=== PATIENT | female | born 1990 | race African-American/Black ===

== ENCOUNTER 2016-07-30 08:27 | Emergency (ER) | payer MEDICAID ==
[~2016-07-30] VITALS: Ht 175.3 cm; Wt 113.9 kg
[2016-07-30] MEDS ORDERED: ALBUTEROL SULF 2.5 MG/0.5ML(0.5%) NEB SOLN HHN STA (08:43)
[2016-07-30] MEDS ORDERED: methylPREDNISolone SOD SUCC 125 MG/2 ML VL IV ONE (08:45)
[2016-07-30] MEDS ORDERED: IPRATROPIUM BROM 0.5 MG/2.5ML INH SOL NEB ONE (08:45)
[2016-07-30 09:32] LABS: Basophils # (auto) 0 uL; Basophils % (auto) 0.1 % (0.0-2.0); Eosinophils # (auto) 0.2 uL; Hematocrit 33.3 % (36.0-46.0); Lymphocytes # (auto) 0.7 uL; Lymphocytes % (auto) 8.8 % (10.0-50.0); Mean Corpuscular Hemoglobin 31.9 pg (28.0-32.0); Mean Corpuscular Hgb Conc. 33.1 g/dL (32.0-36.0); Mean Corpuscular Volume 96.5 fL (80.0-100.0); Mean Platelet Volume 8.3 fL (7.4-10.4); Monocytes # (auto) 0.6 uL; Monocytes % (auto) 7.7 % (0.0-12.0); Neutrophils # (auto) 6.5 uL; Neutrophils % (auto) 80.4 % (37.0-80.0); Platelet Count (auto) 271 10^3/uL (140-450); Red Cell Distribution Width 13.8 % (11.6-16.0); White Blood Cell 8.1 10^3/uL (4.4-10.8)
[2016-07-30] MEDS ORDERED: TERBUTALINE SULFATE 1 MG/ML 1ML VIAL SC ONE ×2 (09:37→09:45)
[2016-07-30 09:55] LABS: Albumin 2.6 g/dL (3.4-5.0); Anion Gap 9 (5-15); Aspartate Aminotransferase 15 U/L (15-37); BUN/Creatinine Ratio 13.2; Blood Urea Nitrogen 7 mg/dL (7-18); Calcium 8.5 mg/dL (8.5-10.1); Carbon Dioxide 23 mmol/L (21-32); Chloride 106 mmol/L (98-107); GFR African American 181 mL/min; GFR Non-African American 149 mL/min; Glucose 94 mg/dL (74-106); Potassium 3.7 mmol/L (3.5-5.1); Sodium 138 mmol/L (136-145)
[2016-07-30 09:58] LABS: Alkaline Phosphatase 73 U/L (45-117); Bilirubin, Total < 0.1 mg/dL (0.2-1.0); Total Protein 6.9 g/dL (6.4-8.2)
[2016-07-30 10:02] LABS: Urine Bilirubin Negative (Negative); Urine Blood Negative /uL (Negative); Urine Color Yellow (Yellow); Urine Ketone TRACE (Negative); Urine Nitrite Negative (Negative); Urine RBC <1 /hpf (0 - 4); Urine Squamous Epithelial Cell FEW /hpf (<5); Urine Urobilinogen Normal (Negative); Urine pH 6.5 (5.0-8.0)
[2016-07-30 10:10] LABS: Urine Glucose 3+ mg/dL (Normal)
[2016-07-30 11:03] VITALS: BP 115/56
== END 2016-07-30 11:17 | disposition home or self-care (01) ==
LOC: ER 08:27
DX: J45.909 Unspecified asthma, uncomplicated (principal)
CPT/HCPCS: 36415; 80053; 81001; 85025; 94644; 94761; 96372; 96374; 99285; J2930; J3105; J7030

== ENCOUNTER 2016-08-01 15:05 | Observation (INO) | payer MEDICAID ==
[2016-08-01] MEDS ORDERED: PREN-153 OR (15:34)
[2016-08-01] MEDS ORDERED: FERR18TA2 PO (15:34)
== END 2016-08-01 16:00 | disposition home or self-care (01) | DRG 566 ==
LOC: LDRP 15:05
PROVIDERS: ADMIT Specialist; ATTEND Specialist
DX: O26.893 Other specified pregnancy related conditions, third trimester (principal); Z3A.31 31 weeks gestation of pregnancy
CPT/HCPCS: 59025; 81002; G0378

== ENCOUNTER 2016-09-29 23:45 | Observation (INO) | payer MEDICAID ==
[~2016-09-29 23:45] MED LIST: FERR18TA2 PO; PREN-153 OR
== END 2016-09-30 01:51 | disposition home or self-care (01) | DRG 566 ==
LOC: LDRP 23:45
PROVIDERS: ADMIT Specialist; ATTEND Specialist
DX: O62.9 Abnormality of forces of labor, unspecified (principal); O47.9 False labor, unspecified; Z3A.39 39 weeks gestation of pregnancy
CPT/HCPCS: 59025; 81002; G0378

== ENCOUNTER 2016-09-30 08:00 | Inpatient (IN) | payer MEDICAID ==
[~2016-09-30] VITALS: Ht 175.3 cm; Wt 121.1 kg
[2016-09-30] MEDS ORDERED: LACTATED RINGER'S 1,000 ML IV SCH (08:55)
[2016-09-30] MEDS ORDERED: LACT. RINGERS/OXYTOCIN 20UNITS 1,000 ML IV SCH (08:55)
[2016-09-30] MEDS ORDERED: LIDOCAINE 1% HCL (LOCAL ANESTH.) INJ 20ML MDV IJ ONE (09:00)
[2016-09-30] MEDS ORDERED: PHISODERM TOP SOLN 240ML BTL TOP PRN (09:00)
[2016-09-30] MEDS ORDERED: NALBUPHINE HCL 10 MG/1ml INJECTION IV PRN (09:00)
[2016-09-30] MEDS ORDERED: DERMOPLAST 60ML BOTTLE TOP PRN (09:00)
[2016-09-30] MEDS ORDERED: WITCH HAZEL-GLYCERIN PAD TOP PRN (09:00)
[2016-09-30] MEDS ORDERED: PROMETHAZINE HCL 25 MG/ML 1ML IV PRN (09:00)
[2016-09-30 09:50] LABS: Basophils # (auto) 0 uL; Basophils % (auto) 0.3 % (0.0-2.0); CONDITION Y; Eosinophils # (auto) 0 uL; Eosinophils % (auto) 0.8 % (0.0-7.0); Lymphocytes # (auto) 0.6 uL; Lymphocytes % (auto) 13.2 % (10.0-50.0); Mean Corpuscular Hemoglobin 31.4 pg (28.0-32.0); Mean Corpuscular Hgb Conc. 33.2 g/dL (32.0-36.0); Mean Corpuscular Volume 94.6 fL (80.0-100.0); Mean Platelet Volume 9.2 fL (7.4-10.4); Monocytes # (auto) 0.2 uL; Monocytes % (auto) 4.5 % (0.0-12.0); Neutrophils # (auto) 3.6 uL; Neutrophils % (auto) 81.2 % (37.0-80.0); Platelet Count (auto) 272 10^3/uL (140-450); Red Cell Distribution Width 14.6 % (11.6-16.0); White Blood Cell 4.5 10^3/uL (4.4-10.8)
[2016-09-30 09:50] LABS: Urine Bilirubin Negative (Negative); Urine Blood Negative /uL (Negative); Urine Color Yellow (Yellow); Urine Glucose Normal (Normal); Urine Mucus FEW (None Seen); Urine Nitrite Negative (Negative); Urine RBC 1 /hpf (0 - 4); Urine Squamous Epithelial Cell FEW /hpf (<5)
[2016-09-30 09:51] LABS: Urine Ketone 4+ (Negative)
[2016-09-30 10:04] LABS: INR 0.87 (0.9-1.15); Partial Thromboplastin Time 28.7 sec (22.64-33.71); Prothrombin Time 9.5 sec (9.37-12.3)
[2016-09-30] MEDS ORDERED: LIDOCAINE 2%HCL (LOCAL ANESTH.) INJ 20ML MDV ONE (10:05)
[2016-09-30 10:15] LABS: Albumin 2.5 g/dL (3.4-5.0); Bilirubin, Total 0.4 mg/dL (0.2-1.0); Calcium 8.4 mg/dL (8.5-10.1); Potassium 3.5 mmol/L (3.5-5.1); Total Protein 6.6 g/dL (6.4-8.2)
[2016-09-30] MEDS ORDERED: fentaNYL W ROPIVACAINE 150 ML EPI SCH ×2 (10:15→11:00)
[2016-09-30] MEDS ORDERED: NALOXONE HCL 0.4 MG/ML VIAL IV ONE ×2 (10:15→11:00)
[2016-09-30] MEDS ORDERED: fentaNYL CITRATE 100 MCG/2 ML VL IV ONE ×2 (10:15→11:00)
[2016-09-30] MEDS ORDERED: ePHEDrine SULFATE 50 MG/ML AMP IV ONE ×2 (10:15→11:00)
[2016-09-30] MEDS ORDERED: LIDOCAINE HCL 2 %PF INJ 10ML AMP IJ ONE (10:15)
[2016-09-30] MEDS ORDERED: SODIUM CHLORIDE 0.9% 500 ML IV PRN (10:56)
[2016-09-30] MEDS: DOCUSATE CALCIUM 240 MG CAP PO SCH (13:45)
[2016-09-30] MEDS ORDERED: ACETAMINOPHEN 325 MG TAB PO PRN (13:45)
[2016-09-30] MEDS ORDERED: TETANUS-DIPTH-ACEL PERTUSSIS 0.5ML SYRG IM ONE (16:30)
[2016-09-30 18:18] VITALS: BP 109/66
[2016-09-30] MEDS: IBUPROFEN 600 MG TAB PO PRN ×2 (19:40→23:41)
[2016-09-30 23:30] VITALS: BP 104/78
[2016-10-01 03:09] VITALS: BP 119/71
[2016-10-01 08:00] VITALS: BP 106/63
[2016-10-01] MEDS: IBUPROFEN 600 MG TAB PO PRN ×2 (08:37→13:53)
[2016-10-01] MEDS: DOCUSATE CALCIUM 240 MG CAP PO SCH (10:00)
[2016-10-01] MEDS ORDERED: PNEUMOCOCCAL VACC POLYS 25 MCG/0.5 ML VIAL IM ONE (10:15)
[2016-10-01 12:00] VITALS: BP 112/63
== END 2016-10-01 15:30 | disposition home or self-care (01) | DRG 560 ==
LOC: LDRP 08:00
PROVIDERS: ADMIT Specialist; ATTEND Specialist
PROC: 10D07Z6 Extraction of Products of Conception, Vacuum, Via Natural or Artificial Opening (ICD-10-PCS; principal; 2016-09-30)
PROC: 10907ZC Drainage of Amniotic Fluid, Therapeutic from Products of Conception, Via Natural or Artificial Opening (ICD-10-PCS; 2016-09-30)
PROC: 3E0S3CZ (ICD-10-PCS; 2016-09-30)
PROC: 00HU33Z Insertion of Infusion Device into Spinal Canal, Percutaneous Approach (ICD-10-PCS; 2016-09-30)
DX: O69.81X0 Labor and delivery complicated by cord around neck, without compression, not applicable or unspecified (principal); J45.909 Unspecified asthma, uncomplicated; O99.52 Diseases of the respiratory system complicating childbirth; Z3A.39 39 weeks gestation of pregnancy; Z37.0 Single live birth; Z23 Encounter for immunization
CPT/HCPCS: 36415; 59025; 59409; 80053; 80307; 81001; 85025; 85610; 85730; 86850; 86900; 86901; 90472; 90715; 94760; 96365; 96366; 96372; 96375; J2590; J3010

== ENCOUNTER 2018-01-12 05:37 | Emergency (ER) | payer MEDICAID ==
[~2018-01-12] VITALS: Ht 175.3 cm; Wt 111.6 kg
[2018-01-12] MEDS ORDERED: LIDOCAINE VISCOUS 2% 15ML UD ONE (06:34)
[2018-01-12] MEDS ORDERED: LIDOCAINE VISCOUS 2% 15ML UD MT ONE (06:45)
[2018-01-12] MEDS ORDERED: ACETAMINOPHEN 500 MG TAB PO ONE (06:45)
[2018-01-12 07:26] VITALS: BP 99/65
== END 2018-01-12 11:51 | disposition home or self-care (01) ==
LOC: ER 05:37
DX: H72.92 Unspecified perforation of tympanic membrane, left ear (principal); J45.909 Unspecified asthma, uncomplicated

== ENCOUNTER 2018-06-08 19:58 | Inpatient (IN) | payer MEDICAID | END 2018-06-10 11:40 | disposition home or self-care (01) | LOC: LDRP 19:58 | PROC: 10E0XZZ Delivery of Products of Conception, External Approach (ICD-10-PCS; principal; ~2018-06-08) | DX: O80 Encounter for full-term uncomplicated delivery (principal); Z37.0 Single live birth; Z3A.40 40 weeks gestation of pregnancy ==

== ENCOUNTER 2018-10-05 21:06 | Emergency (ER) | payer MEDICAID ==
[~2018-10-05] VITALS: Ht 175.3 cm; Wt 112.9 kg
[~2018-10-05 21:06] MED LIST changes: +ALBUAER3 IN
[2018-10-05 21:16] VITALS: BP 124/71
[2018-10-05] MEDS ORDERED: methylPREDNISolone SOD SUCC 125 MG/2 ML VL IM ONE (21:45)
[2018-10-05] MEDS ORDERED: ACETAMINOPHEN/CODEINE#3 (300/30mg) TAB PO ONE (22:15)
[2018-10-05] MEDS ORDERED: BACLOFEN 10 MG TAB PO ONE (22:15)
== END 2018-10-05 23:00 | disposition home or self-care (01) ==
LOC: ER 21:09
DX: S16.1XXA Strain of muscle, fascia and tendon at neck level, initial encounter (principal); J45.909 Unspecified asthma, uncomplicated; Z79.899 Other long term (current) drug therapy; V29.9XXA Motorcycle rider (driver) (passenger) injured in unspecified traffic accident, initial encounter; Y93.89 Activity, other specified; Y92.89 Other specified places as the place of occurrence of the external cause; Y99.8 Other external cause status
CPT/HCPCS: 72040; 96372; 99283; J2930

== ENCOUNTER 2018-12-08 19:20 | Emergency (ER) | payer MEDICAID ==
[~2018-12-08] VITALS: Ht 175.3 cm; Wt 108.9 kg
[2018-12-08 20:19] LABS: Basophils # (auto) 0 uL; Basophils % (auto) 0.5 % (0.0-2.0); Eosinophils # (auto) 0.3 uL; Hematocrit 35.6 % (36.0-46.0); Hemoglobin 11.6 g/dL (12.2-16.2); Lymphocytes # (auto) 2.1 uL; Lymphocytes % (auto) 34.2 % (10.0-50.0); Mean Corpuscular Hemoglobin 30.6 pg (28.0-32.0); Mean Corpuscular Hgb Conc. 32.7 g/dL (32.0-36.0); Mean Corpuscular Volume 93.8 fL (80.0-100.0); Monocytes # (auto) 0.5 uL; Monocytes % (auto) 7.5 % (0.0-12.0); Neutrophils # (auto) 3.2 uL; Neutrophils % (auto) 52.8 % (37.0-80.0); Nucleated Red Blood Cells % 0.1 %; Platelet Count (auto) 327 10^3/uL (140-450); Red Blood Cells 3.79 10^6/uL (4.0-5.20); Red Cell Distribution Width 14.4 % (11.8-14.3); White Blood Cell 6.1 10^3/uL (4.4-10.8)
[2018-12-08 20:47] LABS: Alanine Aminotransferase 19 U/L (13-56); Albumin 3.4 g/dL (3.4-5.0); Anion Gap 7 (5-15); Aspartate Aminotransferase 9 U/L (15-37); BUN/Creatinine Ratio 23.2; Blood Urea Nitrogen 16 mg/dL (7-18); Calcium 8.5 mg/dL (8.5-10.1); Carbon Dioxide 28 mmol/L (21-32); Chloride 106 mmol/L (98-107); GFR African American 131 mL/min; GFR Non-African American 108 mL/min; Glucose 84 mg/dL (74-106); Potassium 3.5 mmol/L (3.5-5.1); Sodium 141 mmol/L (136-145)
[2018-12-08 20:50] LABS: Alkaline Phosphatase 55 U/L (45-117); Bilirubin, Total 0.1 mg/dL (0.2-1.0); Total Protein 7.3 g/dL (6.4-8.2)
[2018-12-09] MEDS ORDERED: IOHEXOL 350 MG/ML 100ML IJ ONE (03:01)
[2018-12-09 05:20] VITALS: BP 128/84
[2018-12-09 06:25] LABS: Urine Bacteria FEW /hpf (None Seen); Urine Blood 2+ /uL (Negative); Urine Budding Yeast MODERATE /hpf (None Seen); Urine Mucus FEW (None Seen); Urine Specific Gravity 1.032 (1.001-1.035); Urine WBC 454 /hpf (0 - 5); Urine WBC Clumps PRESENT /hpf (None Seen)
== END 2018-12-09 07:15 | disposition home or self-care (01) ==
LOC: ER 19:30
DX: R07.89 Other chest pain (principal); N39.0 Urinary tract infection, site not specified; J45.909 Unspecified asthma, uncomplicated
CPT/HCPCS: 36415; 71045; 71275; 80053; 81001; 84484; 85025; 85379; 93005; 94761; 99284; Q9967

== ENCOUNTER 2020-02-01 03:44 | Emergency (ER) | payer MEDICAID ==
[~2020-02-01] VITALS: Ht 175.3 cm; Wt 113.4 kg
[2020-02-01 05:36] LABS: Urine Bacteria FEW /hpf (None Seen); Urine Blood Negative /uL (Negative); Urine Mucus FEW (None Seen); Urine Specific Gravity 1.028 (1.001-1.035); Urine WBC 1 /hpf (0 - 5)
[2020-02-01 06:34] LABS: Albumin 3.3 g/dL (3.4-5.0); BUN/Creatinine Ratio 23.5; Calcium 8.7 mg/dL (8.5-10.1); Potassium 3.6 mmol/L (3.5-5.1)
[2020-02-01 06:37] LABS: Bilirubin, Total 0.2 mg/dL (0.2-1.0); Total Protein 6.9 g/dL (6.4-8.2)
[2020-02-01 08:00] LABS: Basophils # (auto) 0 10 ^3/uL (0-0.2); Basophils % (auto) 0.5 % (0.0-2.0); Eosinophils # (auto) 0.2 10 ^3/uL (0-0.8); Hematocrit 30.8 % (36.0-46.0); Hemoglobin 9.9 g/dL (12.2-16.2); Lymphocytes # (auto) 1.5 10 ^3/uL (0.4-5.4); Mean Corpuscular Hemoglobin 29.9 pg (28.0-32.0); Mean Corpuscular Hgb Conc. 32.2 g/dL (32.0-36.0); Mean Corpuscular Volume 92.8 fL (80.0-100.0); Monocytes # (auto) 0.4 10 ^3/uL (0-1.3); Neutrophils % (auto) 65.5 % (37.0-80.0); Platelet Count (auto) 278 10^3/uL (140-450); Red Blood Cells 3.32 10^6/uL (4.0-5.20); Red Cell Distribution Width 16.6 % (11.8-14.3); White Blood Cell 6.1 10^3/uL (4.4-10.8)
[2020-02-01 08:14] LABS: INR 0.97 (0.9-1.15); Partial Thromboplastin Time 27.1 sec (23.0-31.2)
[2020-02-01] MEDS ORDERED: SODIUM CHLORIDE 0.9% 1,000 ML IV ONE (08:45)
[2020-02-01 09:00] VITALS: BP 111/60
== END 2020-02-01 10:07 | disposition home or self-care (01) ==
LOC: ER 03:46
DX: O20.9 Hemorrhage in early pregnancy, unspecified (principal); O99.281 Endocrine, nutritional and metabolic diseases complicating pregnancy, first trimester; E86.0 Dehydration; Z3A.09 9 weeks gestation of pregnancy
CPT/HCPCS: 36415; 76801; 80053; 81001; 84702; 85025; 85610; 85730; 86850; 86900; 86901; 96360; 99285; J7030

== ENCOUNTER 2020-07-08 11:27 | Observation (INO) | payer MEDICAID ==
[~2020-07-08 11:27] MED LIST changes: -PREN-153 OR; +PREN1TAB71 OR
[2020-07-08 13:32] LABS: Alcohol, Urine < 3.0 mg/dL (0-10); Amphetamine Screen, Urine NEGATIVE (NEGATIVE); Barbiturate Scree,Urine NEGATIVE (NEGATIVE); Benzodiazephine Screen, Urine NEGATIVE (NEGATIVE); Cannabinoid Screen, Urine NEGATIVE (NEGATIVE); Cocaine Screen, Urine NEGATIVE (NEGATIVE); Opiate Scree,Urine NEGATIVE (NEGATIVE); Phencyclidine Screen, Urine NEGATIVE (NEGATIVE)
== END 2020-07-08 13:35 | disposition home or self-care (01) ==
LOC: LDRP 11:27
PROVIDERS: ADMIT Specialist; ATTEND Specialist
DX: O26.893 Other specified pregnancy related conditions, third trimester (principal); M54.30 Sciatica, unspecified side; O23.43 Unspecified infection of urinary tract in pregnancy, third trimester; O32.1XX0 Maternal care for breech presentation, not applicable or unspecified; Z3A.31 31 weeks gestation of pregnancy; Z37.9 Outcome of delivery, unspecified; Z79.899 Other long term (current) drug therapy
CPT/HCPCS: 59025; 76818; 80307; 81002; G0378

== ENCOUNTER 2020-07-08 13:43 | Emergency (ER) | payer MEDICAID ==
[~2020-07-08] VITALS: Ht 175.3 cm; Wt 124.7 kg
[2020-07-08 14:44] VITALS: BP 107/61
[2020-07-08] MEDS ORDERED: ACETAMINOPHEN 500 MG TAB PO ONE (15:45)
== END 2020-07-08 16:41 | disposition home or self-care (01) ==
LOC: ER 13:43
DX: O23.43 Unspecified infection of urinary tract in pregnancy, third trimester (principal); M54.5 Low back pain; M25.552 Pain in left hip; Z3A.31 31 weeks gestation of pregnancy

== ENCOUNTER 2020-07-25 14:45 | Observation (INO) | payer MEDICAID ==
[2020-07-25] MEDS ORDERED: LABE100T4 PO (17:34)
== END 2020-07-25 17:55 | disposition home or self-care (01) ==
LOC: LDRP 14:45
PROVIDERS: ADMIT Specialist; ATTEND Specialist
DX: O11.3 Pre-existing hypertension with pre-eclampsia, third trimester (principal); Z79.899 Other long term (current) drug therapy; Z3A.33 33 weeks gestation of pregnancy
CPT/HCPCS: 59025; 76818; 81002; G0378

== ENCOUNTER 2020-07-30 13:02 | Observation (INO) | payer MEDICAID ==
[~2020-07-30 13:02] MED LIST changes: +LABE100T4 PO
== END 2020-07-30 14:31 | disposition home or self-care (01) ==
LOC: LDRP 13:02
PROVIDERS: ADMIT Obstetrics & Gynecology; ATTEND Obstetrics & Gynecology
DX: O10.913 Unspecified pre-existing hypertension complicating pregnancy, third trimester (principal); Z3A.34 34 weeks gestation of pregnancy
CPT/HCPCS: 59025; 76818; 81002; G0378

== ENCOUNTER 2020-07-31 23:51 | Emergency (ER) | payer MEDICAID ==
[~2020-07-31] VITALS: Ht 175.3 cm; Wt 123.8 kg
[2020-08-01 00:59] LABS: Basophils # (auto) 0 10 ^3/uL (0-0.2); Basophils % (auto) 0.3 % (0.0-2.0); Eosinophils # (auto) 0.3 10 ^3/uL (0-0.8); Eosinophils % (auto) 4.1 % (0.0-7.0); Hematocrit 32.5 % (36.0-46.0); Hemoglobin 10.9 g/dL (12.2-16.2); Lymphocytes # (auto) 1.4 10 ^3/uL (0.4-5.4); Lymphocytes % (auto) 16.3 % (10.0-50.0); Mean Corpuscular Hemoglobin 31.8 pg (28.0-32.0); Mean Corpuscular Hgb Conc. 33.4 g/dL (32.0-36.0); Mean Corpuscular Volume 95.1 fL (80.0-100.0); Monocytes # (auto) 0.6 10 ^3/uL (0-1.3); Monocytes % (auto) 7.3 % (0.0-12.0); Neutrophils # (auto) 6.1 10 ^3/uL (1.6-8.6); Platelet Count (auto) 253 10^3/uL (140-450); Red Blood Cells 3.41 10^6/uL (4.0-5.20); Red Cell Distribution Width 13.7 % (11.8-14.3); White Blood Cell 8.5 10^3/uL (4.4-10.8)
[2020-08-01 01:16] LABS: Albumin 2.7 g/dL (3.4-5.0); Calcium 8.9 mg/dL (8.5-10.1); Potassium 3.4 mmol/L (3.5-5.1)
[2020-08-01 01:18] LABS: BUN/Creatinine Ratio 26.8
[2020-08-01 01:31] LABS: Bilirubin, Total 0.1 mg/dL (0.2-1.0); Total Protein 7.2 g/dL (6.4-8.2)
[2020-08-01] MEDS ORDERED: IPRATROPIUM BROM 0.5 MG/2.5ML INH SOL NEB ONE (01:45)
[2020-08-01] MEDS ORDERED: ALBUTEROL SULF 2.5 MG/0.5ML(0.5%) NEB SOLN NEB ONE (01:45)
[2020-08-01 02:08] LABS: Urine Amorphous Crystal FEW /hpf (None Seen); Urine Bacteria FEW /hpf (None Seen); Urine Blood Negative /uL (Negative); Urine Mucus FEW (None Seen); Urine Specific Gravity 1.037 (1.001-1.035); Urine WBC 2 /hpf (0 - 5)
[2020-08-01 03:35] VITALS: BP 105/70
== END 2020-08-01 03:39 | disposition home or self-care (01) ==
LOC: ER 23:52
DX: O99.513 Diseases of the respiratory system complicating pregnancy, third trimester (principal); J45.909 Unspecified asthma, uncomplicated; O99.013 Anemia complicating pregnancy, third trimester; Z3A.34 34 weeks gestation of pregnancy; Z20.822 Contact with and (suspected) exposure to COVID-19
CPT/HCPCS: 36415; 80053; 81001; 84484; 84702; 85025; 87426; 94640; 99285; J7644

== ENCOUNTER 2020-08-01 14:56 | Observation (INO) | payer MEDICAID | END 2020-08-01 16:30 | disposition home or self-care (01) | LOC: LDRP 14:56 | PROVIDERS: ADMIT Specialist; ATTEND Specialist | DX: O10.913 Unspecified pre-existing hypertension complicating pregnancy, third trimester (principal); O99.513 Diseases of the respiratory system complicating pregnancy, third trimester; J45.909 Unspecified asthma, uncomplicated; O99.013 Anemia complicating pregnancy, third trimester; D64.9 Anemia, unspecified; J02.9 Acute pharyngitis, unspecified; O26.893 Other specified pregnancy related conditions, third trimester; R51.9 Headache, unspecified; O99.891 Other specified diseases and conditions complicating pregnancy; M54.40 Lumbago with sciatica, unspecified side; Z87.59 Personal history of other complications of pregnancy, childbirth and the puerperium; Z79.899 Other long term (current) drug therapy; Z3A.34 34 weeks gestation of pregnancy | CPT/HCPCS: 59025; 76818; 81002; 94760; G0378 ==

== ENCOUNTER 2020-08-02 08:35 | Observation (INO) | payer MEDICAID ==
[~2020-08-02] VITALS: Ht 175.3 cm; Wt 123.8 kg
== END 2020-08-05 20:28 | disposition home or self-care (01) ==
LOC: LDRP 08-05 15:30
PROVIDERS: ADMIT Specialist; ATTEND Specialist
DX: O10.913 Unspecified pre-existing hypertension complicating pregnancy, third trimester (principal); O62.9 Abnormality of forces of labor, unspecified; Z3A.35 35 weeks gestation of pregnancy
CPT/HCPCS: 59025; 76818; 81002; G0378

== ENCOUNTER 2020-08-08 15:34 | Observation (INO) | payer MEDICAID | END 2020-08-08 17:00 | disposition home or self-care (01) | LOC: LDRP 15:34 | PROVIDERS: ADMIT Specialist; ATTEND Specialist | DX: O10.013 Pre-existing essential hypertension complicating pregnancy, third trimester (principal); Z3A.35 35 weeks gestation of pregnancy; Z79.899 Other long term (current) drug therapy | CPT/HCPCS: 59025; 76818; 81002; 82948; G0378 ==

== ENCOUNTER 2020-08-12 08:48 | Observation (INO) | payer MEDICAID | END 2020-08-12 17:45 | disposition home or self-care (01) | LOC: LDRP 16:00 | PROVIDERS: ADMIT Specialist; ATTEND Specialist | DX: O10.03 Pre-existing essential hypertension complicating the puerperium (principal); O34.63 Maternal care for abnormality of vagina, third trimester; N89.8 Other specified noninflammatory disorders of vagina; Z3A.36 36 weeks gestation of pregnancy | CPT/HCPCS: 59025; 76818; 81002; G0378 ==

== ENCOUNTER 2020-08-16 15:08 | Observation (INO) | payer MEDICAID | END 2020-08-16 19:15 | disposition home or self-care (01) | LOC: LDRP 15:38 | PROVIDERS: ADMIT Specialist; ATTEND Specialist | DX: O16.3 Unspecified maternal hypertension, third trimester (principal); Z3A.37 37 weeks gestation of pregnancy | CPT/HCPCS: 59025; 76818; 81002; G0378 ==

== ENCOUNTER 2020-08-19 15:36 | Observation (INO) | payer MEDICAID ==
[~2020-08-19] VITALS: Ht 176.5 cm; Wt 125.6 kg
[2020-08-19] MEDS ORDERED: ACETAMINOPHEN 325 MG TAB PO ONE (17:00)
== END 2020-08-19 17:50 | disposition home or self-care (01) ==
LOC: LDRP 15:36
PROVIDERS: ADMIT Obstetrics & Gynecology; ATTEND Obstetrics & Gynecology
DX: O16.3 Unspecified maternal hypertension, third trimester (principal); Z3A.37 37 weeks gestation of pregnancy
CPT/HCPCS: 59025; 76818; 81002; 94760; G0378

== ENCOUNTER 2020-08-23 09:28 | Observation (INO) | payer MEDICAID | END 2020-08-23 18:44 | disposition home or self-care (01) | LOC: LDRP 16:22 | PROVIDERS: ADMIT Obstetrics & Gynecology; ATTEND Obstetrics & Gynecology | DX: O10.913 Unspecified pre-existing hypertension complicating pregnancy, third trimester (principal); Z3A.38 38 weeks gestation of pregnancy | CPT/HCPCS: 59025; 76818; 81002; G0378 ==

== ENCOUNTER 2020-08-26 10:48 | Observation (INO) | payer MEDICAID | END 2020-08-26 19:07 | disposition home or self-care (01) | LOC: LDRP 15:34 | PROVIDERS: ADMIT Specialist; ATTEND Specialist | DX: O10.913 Unspecified pre-existing hypertension complicating pregnancy, third trimester (principal); Z3A.38 38 weeks gestation of pregnancy | CPT/HCPCS: 59025; 76818; 81002; 94760; G0378 ==

== ENCOUNTER 2020-08-29 13:23 | Observation (INO) | payer MEDICAID ==
[~2020-08-29] VITALS: Ht 175.3 cm; Wt 127.5 kg
== END 2020-08-29 18:55 | disposition home or self-care (01) ==
LOC: LDRP 16:10
PROVIDERS: ADMIT Specialist; ATTEND Specialist
DX: O10.913 Unspecified pre-existing hypertension complicating pregnancy, third trimester (principal); Z3A.38 38 weeks gestation of pregnancy
CPT/HCPCS: 59025; 76818; 81002; G0378

== ENCOUNTER 2020-09-03 07:39 | Observation (INO) | payer MEDICAID | END 2020-09-03 18:21 | disposition home or self-care (01) | LOC: LDRP 15:23 | PROVIDERS: ADMIT Obstetrics & Gynecology; ATTEND Obstetrics & Gynecology | DX: O10.913 Unspecified pre-existing hypertension complicating pregnancy, third trimester (principal); O42.92 Full-term premature rupture of membranes, unspecified as to length of time between rupture and onset of labor; O26.893 Other specified pregnancy related conditions, third trimester; N89.8 Other specified noninflammatory disorders of vagina; Z3A.39 39 weeks gestation of pregnancy | CPT/HCPCS: 59025; 76818; 81002; 84112; G0378; Q0114 ==

== ENCOUNTER 2022-12-15 17:55 | Emergency (ER) | payer MEDICAID ==
[~2022-12-15] VITALS: Ht 175.3 cm; Wt 116.9 kg
[2022-12-15] MEDS ORDERED: ALBUAER3 IN (23:36)
[2022-12-15] MEDS ORDERED: PRED20TA2 PO (23:36)
[2022-12-15] MEDS ORDERED: IPRATROPIUM BROM 0.5 MG/2.5ML INH SOL NEB ONE (23:45)
[2022-12-15] MEDS ORDERED: DexAMETHasone SOD PHOS 10MG/1ML VIAL INJ IM ONE (23:45)
[2022-12-15] MEDS ORDERED: ALBUTEROL SULF 2.5 MG/0.5ML(0.5%) NEB SOLN NEB ONE (23:45)
[2022-12-16 00:49] VITALS: BP 119/64; PULSE 79; RESP 18; TEMP 98.5; O2SAT 99
== END 2022-12-16 00:56 | disposition home or self-care (01) ==
LOC: ER 17:55
DX: J45.909 Unspecified asthma, uncomplicated (principal)
CPT/HCPCS: 94640; 96372; 99283; J1100; J7644